=== PATIENT | female | born 1960 | race African-American/Black ===

== ENCOUNTER 2016-10-27 11:46 | Emergency (ER) | payer BC ==
[~2016-10-27] VITALS: Ht 160 cm; Wt 165.4 kg
[~2016-10-27 11:46] MED LIST: FLEXERIL OR; IRON325 M1; LASIX 40 MG40 MG/TAB PO; LORTAB5 PO; NAPROSYN500 MG PO; NO HOME MEDS; PERCOCET 5/325M1 TAB PO; POTASSIUM CHLO10 ME1 PO; PREVACID30 M1 PO; PREVACID30 M2 PO; STERAPRED DS10 MG PO; ULTRAM50 M1 PO
[2016-10-27] MEDS ORDERED: PREVACID30 M1 PO (12:06)
[2016-10-27] MEDS ORDERED: LORTAB 5-325 MG1 TAB PO (14:14)
[2016-10-27] MEDS ORDERED: ZOFRAN4 MG/TAB PO (14:14)
[2016-10-27] MEDS ORDERED: MOTRIN800 MG PO (14:14)
[2016-10-27] MEDS ORDERED: MECLIZINE25 M1 PO (14:14)
[2016-10-27 14:31] VITALS: BP 128/57
== END 2016-10-27 14:50 | disposition home or self-care (01) | DRG 149 ==
LOC: ED 11:46
DX: R42 Dizziness and giddiness (principal); I10 Essential (primary) hypertension; S80.02XA Contusion of left knee, initial encounter; E11.9 Type 2 diabetes mellitus without complications; F17.210 Nicotine dependence, cigarettes, uncomplicated; W18.30XA Fall on same level, unspecified, initial encounter